=== PATIENT | female | born 1950 | race Caucasian/White ===

== ENCOUNTER 2016-09-27 14:11 | Emergency (ER) | payer OTHER ==
[2016-09-27 14:19] VITALS: RESP 16
--- NOTE | 2016-09-27 15:13 | EDPHY ---
H & P Stated Complaint: mech fall over uneven surface, c/o left wrist pain HPI/ROS: HPI CHIEF COMPLAINT: Left wrist pain HISTORY OF PRESENT ILLNESS: This patient is 66 y.o. female, significant past medical history for GERD and depression, she fell on outstretched left hand. This happened yesterday. She tripped over a uneven surface, she fell on outstretched left hand. Since then she has had wrist pain and swelling. Ecchymosis. Denies any other areas of pain. She does have pain with range of motion of her left wrist. She has been wearing a Velcro wrist splint. She comes emergency room as the pain and swelling has persisted. Past Medical History: Depression, GERD Past Surgical History: Low back surgery Social History: Denies daily use of drugs alcohol tobacco products is a [place] patient resides in [place] Family History: Noncontributory ROS REVIEW OF SYSTEMS: A comprehensive 10 point review of systems is otherwise negative aside from elements mentioned in the history of present illness. Exam Constitutional triage nursing summary reviewed, vital signs reviewed, awake/ alert. Eyes normal conjunctivae and sclera, EOMI, PERRLA. HENT normal inspection, atraumatic, moist mucus membranes, no epistaxis, neck supple/ no meningismus, no raccoon eyes. Respiratory clear to auscultation bilaterally, normal breath sounds, no respiratory distress, no wheezing. Cardiovascular rate normal, regular rhythm, no murmur, no edema, distal pulses normal. Gastrointestinal soft, non-tender, no rebound, no guarding, normal bowel sounds, no distension, no pulsatile mass. Genitourinary no CVA tenderness. Musculoskeletal left wrist: Swollen, ecchymosis present, tender palpation of the distal radius and distal ulnar, otherwise neurovascular intact good radial pulse, good cap refill, good high man strength, no midline vertebral tenderness, full range of motion, no calf swelling, no tenderness of extremities, no meningismus, good pulses, neurovascularly intact. Skin pink, warm, & dry, no rash, skin atraumatic. Neurologic awake, alert and oriented x 3, AAOx3, moves all 4 extremities equally, motor intact, sensory intact, CN II-XII intact, normal cerebellar, normal vision, normal speech. Psychiatric normal mood/affect. Heme/Lymph/Immune no lymphadenopathy. Differential Diagnosis: Includes but is not limited to wrist fracture, wrist sprain. Medical Decision Making: Plan for this patient x-ray left wrist. Rule out fracture. Re-evaluation: ED x-ray left wrist: This shows a triquetrum fracture. Otherwise unremarkable. X-ray reviewed by myself. 1520: Plan for this patient sugar-tong splint. Orthopedic follow-up. Pain control. Elevation and ice. She understands follow-up with Orthopedics. Understands to return emergency room if there is any worsening symptoms questions or concerns. Source: Patient - Personal History Current Tetanus/Diphtheria Vaccine: Yes Current Tetanus Diphtheria and Acellular Pertussis (TDAP): Yes Tetanus Vaccine Date: 2007 - Medical/Surgical History Hx Asthma: No Hx Chronic Respiratory Disease: No Hx Diabetes: No Hx Cardiac Disease: No Hx Renal Disease: No Hx Cirrhosis: No Hx Alcoholism: No Hx HIV/AIDS: No Hx Splenectomy or Spleen Trauma: No Other PMH: chronic cough, depression, GERD, back surgery - Social History Smoking Status: Never smoked Constitutional: Initial Vital Signs Temperature (C) 36.8 C 09/27/16 14:16 Heart Rate 79 09/27/16 14:16 Respiratory Rate 16 09/27/16 14:16 Blood Pressure 114/64 09/27/16 14:16 O2 Sat (%) 95 09/27/16 14:16 O2 Delivery Mode Room Air Allergies/Adverse Reactions: Penicillins Allergy (Verified 09/27/16 14:13) Home Medications: Medication Instructions Recorded Hydrocodone/APAP 5/325 [[place] 1 - 2 tab PO Q4H PRN #10 tab 09/27/16 5/325] Omeprazole 09/27/16 Venlafaxine HCl 09/27/16 buPROPion 09/27/16 traZODone 09/27/16 Medical Decision Making - Diagnostics Imaging Results: Imaging Impressions Wrist X-Ray 09/27/16 14:20 Impression: Suspect essentially undisplaced triquetral fracture with clinical correlation recommended. Departure - Departure Disposition: Home, Routine, Self-Care Clinical Impression: Wrist fracture, left Qualifiers: Encounter type: initial encounter Fracture type: closed Qualified Code(s): S62.102A - Fracture of unspecified carpal bone, left wrist, initial encounter for closed fracture Condition: Good Instructions: Wrist Fracture in Adults (ED) Additional Instructions: 1. Please follow up with Orthopedics call their for an appointment. 2. Return emergency room if you have worsening pain questions or concerns. Referrals: ARELIS ECHEVARRIA [Other] - As per Instructions Kiko Scanlon MD [Medical Doctor] - As per Instructions Prescriptions: Hydrocodone/APAP 5/325 [[place] 5/325] 1 - 2 tab PO Q4H PRN #10 tab PRN Reason: Pain, Moderate
[2016-09-27 15:59] VITALS: BP 118/78; PULSE 78; TEMP 98.4; O2SAT 96
== END 2016-09-27 16:12 | disposition home or self-care (01) ==
DX: S62.102A Fracture of unspecified carpal bone, left wrist, initial encounter for closed fracture (principal); W01.0XXA Fall on same level from slipping, tripping and stumbling without subsequent striking against object, initial encounter
CPT/HCPCS: 73110; 99283; A4565